=== PATIENT | female | born 1985 | race Caucasian/White ===

== ENCOUNTER → 2019-07-08 15:41 | Outpatient (CLI) | payer OTHER, SELFPAY ==
--- NOTE | 2019-07-08 | DI.US.S_ITS ---
PROCEDURE: US OB <= 14 WEEKS FETUS INDICATIONS: EVALUATE FOR ECTOPIC OUTSIDE/PRIOR DATING DATA: Last menstrual period (LMP): 05/27/19. LMP-based estimated date of delivery (SUREKHA): 03/02/20. First dating scan (date and location): 07/08/19. Estimated date of delivery (SUREKHA) from first dating scan: 02/27/20. TECHNIQUE: Real-time scanning was performed of the fetus and maternal pelvic organs, with image documentation. Endovaginal scanning was also performed to better visualize the fetus and maternal ovaries. COMPARISON: None. FINDINGS: Embryo: [place]-rump length measures 7 mm corresponding to 6 weeks 4 days. Heart rate measures 117 beats per minute. Measurement variability in dating: +/- 4 weeks by LMP, +/- 7 days by mean sac diameter (use before 6 weeks gestation if crown-rump length not able to be measured), +/- 5 days by crown-rump length (up to 8 weeks 6 days gestation), +/- 7 days by crown-rump length (up to 13 weeks 6 days gestation). Maternal organs: Ovaries within normal limits, with a right corpus luteal cyst. Limited images through the kidneys demonstrate no hydronephrosis. IMPRESSION: 6 week 4 [address] single living IUP. Dr. Flaherty given result by the zone manager at 1655 hrs. 07/08/19. Dictated by: Clifton LYONS Interpreted: Shivani Lyons MD on 07/08/2019 at 17:03 Approved by: Shivani Lyons MD, PhD on 07/08/2019 at 17:27
== END ==
PROVIDERS: Visit Provider Student in an Organized Health Care Education/Training Program
DX: O34.81 Maternal care for other abnormalities of pelvic organs, first trimester (principal); N83.11 Corpus luteum cyst of right ovary; Z3A.01 Less than 8 weeks gestation of pregnancy
CPT/HCPCS: 76801; 76817

== ENCOUNTER → 2019-07-15 10:06 | Outpatient (CLI) | payer OTHER, SELFPAY ==
--- NOTE | 2019-07-15 | DI.US.S_ITS ---
ULTRASOUND OF LEFT BREAST: 07/15/2019 CLINICAL: Palpable left breast lump. Patient reports painful left breast mass in the upper outer region extending towards the nipple without associated nipple discharge, fevers, or skin changes. Patient reports the palpable areas have been present for years and has not subjectively changed since becoming with the exception of the pain. On examination, there is dense fibroglandular tissue palpated at the patient directed area of pain with similar but less prominent dense fibroglandular tissue in the right breast as well. No skin or nipple abnormalities. No prior exams were available for comparison. Real-time ultrasound of the left breast was performed. [place] scale images of the real-time examination were reviewed. No significant abnormalities were seen sonographically in the left breast. Dense, heterogeneous fibroglandular breast tissue scattered throughout the left breast at areas of concern without focal mass, disturbed architecture, fluid collections or skin abnormalities. The contralateral breast was imaged real time with the radiologist demonstrating similar but less pronounced findings. IMPRESSION: NEGATIVE There is no sonographic evidence of malignancy. There is no abnormality seen in the left breast to correspond with the area of clinical concern, palpable abnormality, and pain which likely represent normal fibroglandular tissue, however, clinical followup is recommended for persistent or worsening symptoms. Findings, precautions, and recommendations were discussed with the patient during today's visit. This exam was interpreted at Station ID: [id number]. Electronically Signed By: Sheldon Brizuela M.D. aty/:07/15/2019 12:50:53 letter sent: Clinical Evaluation Ultrasound BI-RADS: 1 Negative
== END ==
PROVIDERS: Visit Provider Nurse Practitioner Family
DX: N63.21 Unspecified lump in the left breast, upper outer quadrant (principal); N64.4 Mastodynia
CPT/HCPCS: 76642

== ENCOUNTER → 2019-10-16 10:42 | Outpatient (CLI) | payer OTHER, SELFPAY ==
--- NOTE | 2019-10-16 | DI.US.S_ITS ---
PROCEDURE: US OB >= 14 WEEKS FETUS INDICATIONS: 20 WEEK ANATOMICAL SURVEY OUTSIDE/PRIOR DATING DATA: Last menstrual period (LMP): 05/27/19. LMP-based estimated date of delivery (SUREKHA): 03/02/20. First dating scan (date and location): 07/08/19. Estimated date of delivery (SUREKHA) from first dating scan: 02/27/20.. TECHNIQUE: Real-time scanning was performed of the fetus, with image documentation and biometric measurements. COMPARISON: None. FINDINGS: General: A single living intrauterine gestation is present. Presentation: Variable. Placenta: Placental position is anterior, without previa. Amniotic fluid index: 12.8 cm, normal range is 5-24 cm. heart rate: 144 beats per minute. Maternal cervical canal: 4.8 cm long. Normal lower limit is 2.5 cm. biometrics: Biparietal diameter: 20 weeks 1 day Head circumference: 20 weeks 1 day Abdominal circumference: 20 weeks 4 days Femur length: 20 weeks 2 days Estimated gestational age from initial scan: 20 weeks 6 days Composite gestational age from present scan: 20 weeks 2 days Estimated weight and percentile: 354 g; 24th percentile Measurement variability for biometric dating: +/- 7 days from 14 weeks to 15 weeks 6 days gestation, +/- 10 days from 16 weeks to 21 weeks 6 days gestation, +/- 2 weeks from 22 weeks to 27 weeks 6 days gestation, +/- 3 weeks for 28 weeks gestation or later. weight reference: 4500 g or EFW >90/95% is considered macrosomia or large for gestational age. EFW <10% is small for gestational age. EFW 5% or less is considered intra-uterine growth restriction. Anatomic survey: Neuro: Ventricles are non-dilated at less than 10 mm. Cisterna magna is normal at 3-11 mm. Cerebellum is normal in size and morphology. Nuchal skin fold: Normal at less than 6 mm between 14-21 weeks gestational age. Face: Nose and lips, facial profile are normal. Spine: No evidence for spina bifida. Heart: 4-chambered heart is present, and cardiac outflow tracts are not well seen. Solitary left ventricular intracardiac focus. Diaphragm: Diaphragm is intact. Stomach: Left-sided stomach is present. Kidneys: No hydronephrosis. Normal is less than 5 mm in 2nd trimester, less than 7 mm in 3rd trimester. Cord: 3-vessel cord has orthotopic insertion. Bladder: Normal in size. Extremities: All 4 extremities identified. IMPRESSION: 1. Normal interval growth. 2. Echogenic intracardiac focus: 1.4-1.8 fold likelihood of Down syndrome. If isolated finding, consider aneuploidy screening with cell-free DNA. If aneuploidy screen is negative, no further evaluation needed. 3. Cardiac outflow tracts are not well visualized; otherwise normal anatomy. 1. Dictated by: Clifton Coleman [facility] Interpreted: David Stevens MD on 10/16/2019 at 14:28 Approved by: David Stevens M.D. on 10/21/2019 at 10:59
== END ==
PROVIDERS: PCP Student in an Organized Health Care Education/Training Program; Visit Provider Student in an Organized Health Care Education/Training Program
DX: Z36.89 Encounter for other specified antenatal screening (principal); Z3A.20 20 weeks gestation of pregnancy
CPT/HCPCS: 76811

== ENCOUNTER → 2019-11-20 11:42 | Outpatient (CLI) | payer OTHER, SELFPAY ==
--- NOTE | 2019-11-20 | DI.US.S_ITS ---
PROCEDURE: US OB FOLLOW UP INDICATIONS: POOR CARDIAC OUTFLOW VISUALIZATION OUTSIDE/PRIOR DATING DATA: Last menstrual period (LMP): 05/27/19. LMP-based estimated date of delivery (SUREKHA): 03/02/20. First dating scan (date and location): 07/08/19. Estimated date of delivery (SUREKHA) from first dating scan: 02/27/20.. TECHNIQUE: Real-time scanning was performed of the fetus, with image documentation. Endovaginal scanning: No COMPARISON: None. FINDINGS: A single living intrauterine gestation is present. Presentation: Transverse head to maternal right cyst. Placenta: Placental position is anterior, without previa. Amniotic fluid index: 24.4 cm, normal range is 5-24 cm. heart rate: 144 beats per minute. Maternal cervical canal: 5.7 cm long. Estimated gestational age from initial scan: 25 weeks 6 days Normal appearance of the cardiac outflow tracts. IMPRESSION: Normal appearance of the cardiac outflow tracts. Dictated by: Clifton Coleman [facility] Interpreted: Chela Hadley MD on 11/20/2019 at 13:29 Approved by: Chela Hadley M.D. on 11/20/2019 at 14:02
== END ==
PROVIDERS: PCP Student in an Organized Health Care Education/Training Program; Visit Provider Student in an Organized Health Care Education/Training Program
DX: Z36.2 Encounter for other antenatal screening follow-up (principal)
CPT/HCPCS: 76816

== ENCOUNTER → 2019-11-27 08:03 | Outpatient (CLI) | payer OTHER, SELFPAY ==
[2019-11-27 10:06] LABS: GTT (PREG) 1 Hour PP 50gm Dose 112 mg/dL (76-139)
== END ==
PROVIDERS: PCP Student in an Organized Health Care Education/Training Program; Visit Provider Student in an Organized Health Care Education/Training Program
DX: Z34.80 Encounter for supervision of other normal pregnancy, unspecified trimester (principal)
CPT/HCPCS: 36415; 82950

== ENCOUNTER → 2020-02-05 12:52 | Outpatient (CLI) | payer OTHER, SELFPAY ==
--- NOTE | 2020-02-05 | DI.US.S_ITS ---
PROCEDURE: US OB BIOPHYSICAL PROFILE INDICATIONS: BPP OUTSIDE/PRIOR DATING DATA: Last menstrual period (LMP): 05/27/19. LMP-based estimated date of delivery (SUREKHA): 03/02/20. First dating scan (date and location): 07/23. Estimated date of delivery (SUREKHA) from first dating scan: 02/27/20. TECHNIQUE: Real-time scanning was performed of the fetus for biophysical profile, with image documentation. Color and pulse Doppler interrogation was also performed of the umbilical artery near its insertion into the placenta. Endovaginal scanning: Not performed COMPARISON: None. FINDINGS: General: A single living intrauterine gestation is present. Presentation: Vertex Placenta: Placental position is anterior, without previa. Amniotic fluid index: 15.3 cm, normal range is 5-24 cm. heart rate: 143 beats per minute. Maternal cervical canal: None measured . Biophysical profile: Tone: 2 points. Movement: 2 points. Respiration: 2 points. Largest pocket of fluid: 2 points. IMPRESSION: 1. Single live intrauterine with fetus in vertex presentation. heart rate is 143 beats per minute. Normal amount of amniotic fluid. 2. biophysical profile score is 8 out of 8. Dictated by: David Stevens M.D. on 02/05/2020 at 15:43 Approved by: David Stevens M.D. on 02/05/2020 at 15:46
[2020-02-05 13:15] LABS: Add Manual Diff / Slide Review NO; Basophils Absolute Auto 100 /uL (0-100); Basophils Percent Auto 0.6 % (0-2); Eosinophils Absolute Auto 100 /uL (0-450); Hematocrit 39.9 % (36-46); Hemoglobin 13.7 g/dL (12.0-16.0); Lymphocytes Absolute Auto 1600 /uL (1100-4500); Lymphocytes Percent Auto 13.9 % (25-40); Mean Corpuscular HGB Conc 34.4 % (30-36); Mean Corpuscular Hemoglobin 30.5 PG (26-34); Mean Corpuscular Volume 88.7 fL (80-100); Monocytes Absolute Auto 900 /uL (0-900); Neutrophils Absolute Auto 9000 /uL (1500-7000); Neutrophils Percent Auto 76.5 % (50-75); Platelet Count 206 X10^3/uL (150-400); Red Cell Distribution Width 13.5 % (11.6-14.8); White Blood Cell Count 11.8 X10^3/uL (4.5-11.0)
[2020-02-05 13:27] LABS: Alanine Aminotransferase 27 IU/L (<35); Aspartate Aminotransferase 25 IU/L (14-36); Blood Urea Nitrogen 6 mg/dL (7-17)
[2020-02-05 14:13] LABS: Creatinine Urine Random 17.7 mg/dL; Protein (Total) Urine Random 12 mg/dL (0-12); Protein Creatinine Ratio Urine 0.67 GRAM/24H
[2020-02-06 14:57] LABS: Strep Grp B PCR NEG for Grp B Strep
== END ==
PROVIDERS: PCP Student in an Organized Health Care Education/Training Program; Referring Provider Student in an Organized Health Care Education/Training Program; Visit Provider Student in an Organized Health Care Education/Training Program
DX: O14.93 Unspecified pre-eclampsia, third trimester (principal); Z36.85 Encounter for antenatal screening for Streptococcus B; Z3A.36 36 weeks gestation of pregnancy
CPT/HCPCS: 36415; 76819; 82570; 84156; 84450; 84460; 84520; 85025; 87653

== ENCOUNTER 2020-02-05 14:15 | Observation (INO) | payer OTHER, SELFPAY | END 2020-02-05 16:45 | disposition home or self-care (01) | PROVIDERS: Admitting Provider Student in an Organized Health Care Education/Training Program; PCP Student in an Organized Health Care Education/Training Program; Referring Provider Student in an Organized Health Care Education/Training Program; Visit Provider Student in an Organized Health Care Education/Training Program | DX: O14.93 Unspecified pre-eclampsia, third trimester (principal); Z3A.36 36 weeks gestation of pregnancy; Z36.85 Encounter for antenatal screening for Streptococcus B; M25.552 Pain in left hip | CPT/HCPCS: 36415; 59025; 59050; 76819; 82570; 84156; 84450; 84460; 84520; 85025; 87653; G0378; G0379 ==

== ENCOUNTER 2020-02-10 09:51 | Outpatient (CLI) | payer OTHER, SELFPAY ==
[2020-02-10 10:18] LABS: Creatinine Urine Random 138.6 mg/dL; Protein (Total) Urine Random 6 mg/dL (0-12); Protein Creatinine Ratio Urine 0.04 GRAM/24H
[2020-02-10 10:20] LABS: Add Manual Diff / Slide Review NO; Basophils Absolute Auto 0 /uL (0-100); Basophils Percent Auto 0.3 % (0-2); Eosinophils Absolute Auto 100 /uL (0-450); Eosinophils Percent Auto 0.9 % (2-4); Hematocrit 39.2 % (36-46); Hemoglobin 13.4 g/dL (12.0-16.0); Lymphocytes Absolute Auto 1400 /uL (1100-4500); Lymphocytes Percent Auto 13.6 % (25-40); Mean Corpuscular HGB Conc 34.1 % (30-36); Mean Corpuscular Hemoglobin 30.5 PG (26-34); Mean Corpuscular Volume 89.3 fL (80-100); Monocytes Absolute Auto 800 /uL (0-900); Monocytes Percent Auto 7.7 % (3-14); Neutrophils Absolute Auto 7900 /uL (1500-7000); Neutrophils Percent Auto 77.5 % (50-75); Platelet Count 181 X10^3/uL (150-400); Red Blood Cell Count 4.39 X10^6/uL (4.0-5.2); Red Cell Distribution Width 13.3 % (11.6-14.8); White Blood Cell Count 10.2 X10^3/uL (4.5-11.0)
[2020-02-10 10:31] LABS: Alanine Aminotransferase 26 IU/L (<35); Albumin 3.7 g/dL (3.5-5.0); Albumin Globulin Ratio 1.1 (1.0-2.8); Alkaline Phosphatase 101 U/L (38-126); Aspartate Aminotransferase 23 IU/L (14-36); BUN Creatinine Ratio 10.9 (6-22); Bilirubin Total 0.2 mg/dL (0.2-1.3); Blood Urea Nitrogen 5 mg/dL (7-17); Calcium 9.5 mg/dL (8.4-10.2); Carbon Dioxide 23 mmol/L (22-32); Chloride 106 mmol/L (98-107); Estimated Glomerular Filt Rate > 60.0 mL/min (>60); Globulin 3.3 g/dL (1.7-4.1); Glucose 78 mg/dL (70-100); HEMOLYSIS < 15 (0-50); Potassium 4.6 mmol/L (3.4-5.1); Sodium 136 mmol/L (137-145)
[2020-02-11 07:17] LABS: 24 Hour Ur Protein Calculated 136 mg/24 hr (30-150)
== END 2020-02-10 11:06 | disposition home or self-care (01) ==
LOC: OB 02-11 10:57
PROVIDERS: PCP Student in an Organized Health Care Education/Training Program; Referring Provider Student in an Organized Health Care Education/Training Program; Visit Provider Student in an Organized Health Care Education/Training Program
DX: O36.8130 Decreased fetal movements, third trimester, not applicable or unspecified (principal); Z3A.37 37 weeks gestation of pregnancy
CPT/HCPCS: 36415; 59025; 80053; 82570; 84156; 84550; 85025; G0378; G0379

== ENCOUNTER → 2020-02-19 12:57 | Outpatient (CLI) | payer OTHER, SELFPAY ==
--- NOTE | 2020-02-19 | DI.US.S_ITS ---
PROCEDURE: US OB BIOPHYSICAL PROFILE INDICATIONS: HTN; HISTORY PRE-ECLAMPSIA OUTSIDE/PRIOR DATING DATA: Last menstrual period (LMP): 05/27/19. LMP-based estimated date of delivery (SUREKHA): 03/02/20. First dating scan (date and location): 07/08/19. Estimated date of delivery (SUREKHA) from first dating scan: 02/27/20. TECHNIQUE: Real-time scanning was performed of the fetus for biophysical profile, with image documentation. Color and pulse Doppler interrogation was also performed of the umbilical artery near its insertion into the placenta. Endovaginal scanning: Not needed. COMPARISON: [facility], OB BIOPHYSICAL PROFILE, 02/05/2020, 13:02. FINDINGS: General: A single living intrauterine gestation is present. Presentation: Vertex. Placenta: Placental position is anterior, without previa. Amniotic fluid index: 7.8 cm, normal range is 5-24 cm. heart rate: 135 beats per minute. Estimated gestational age from initial scan: 38 weeks 6 days. Biophysical profile: 88 possible points Tone: 2 points. Movement: 2 points. Respiration: 2 points. Largest pocket of fluid: 2 points. IMPRESSION: Biophysical profile is 8 of 8 possible points. The delivery date is projected be centered on 02/27/20. Normal amniotic fluid volume. Dictated by: Júnior Dean M.D. on 02/19/2020 at 14:00 Approved by: Júnior Dean M.D. on 02/19/2020 at 14:03
[2020-02-19 13:11] LABS: Add Manual Diff / Slide Review NO; Basophils Absolute Auto 0 /uL (0-100); Basophils Percent Auto 0.3 % (0-2); Eosinophils Absolute Auto 100 /uL (0-450); Hematocrit 39.7 % (36-46); Hemoglobin 13.3 g/dL (12.0-16.0); Lymphocytes Absolute Auto 1600 /uL (1100-4500); Lymphocytes Percent Auto 14.7 % (25-40); Mean Corpuscular HGB Conc 33.4 % (30-36); Mean Corpuscular Hemoglobin 30.3 PG (26-34); Mean Corpuscular Volume 90.5 fL (80-100); Monocytes Absolute Auto 800 /uL (0-900); Monocytes Percent Auto 6.9 % (3-14); Neutrophils Absolute Auto 8600 /uL (1500-7000); Neutrophils Percent Auto 77.1 % (50-75); Platelet Count 223 X10^3/uL (150-400); Red Blood Cell Count 4.39 X10^6/uL (4.0-5.2); Red Cell Distribution Width 13.5 % (11.6-14.8); White Blood Cell Count 11.2 X10^3/uL (4.5-11.0)
[2020-02-19 13:23] LABS: Alanine Aminotransferase 49 IU/L (<35); Albumin 3.7 g/dL (3.5-5.0); Albumin Globulin Ratio 1.2 (1.0-2.8); Alkaline Phosphatase 108 U/L (38-126); Aspartate Aminotransferase 36 IU/L (14-36); BUN Creatinine Ratio 12.8 (6-22); Bilirubin Total 0.3 mg/dL (0.2-1.3); Blood Urea Nitrogen 6 mg/dL (7-17); Calcium 9.5 mg/dL (8.4-10.2); Carbon Dioxide 23 mmol/L (22-32); Chloride 104 mmol/L (98-107); Estimated Glomerular Filt Rate > 60.0 mL/min (>60); Glucose 83 mg/dL (70-100); HEMOLYSIS < 15 (0-50); Potassium 4.7 mmol/L (3.4-5.1); Sodium 136 mmol/L (137-145); Total Protein 6.7 g/dL (6.3-8.2)
[2020-02-19 14:11] LABS: Creatinine Urine Random 24.9 mg/dL; Protein (Total) Urine Random 10 mg/dL (0-12)
== END ==
PROVIDERS: PCP Student in an Organized Health Care Education/Training Program; Referring Provider Student in an Organized Health Care Education/Training Program; Visit Provider Student in an Organized Health Care Education/Training Program
DX: Z87.59 Personal history of other complications of pregnancy, childbirth and the puerperium (principal); O16.3 Unspecified maternal hypertension, third trimester; Z3A.38 38 weeks gestation of pregnancy
CPT/HCPCS: 76819; 80053; 82570; 84156; 85025

== ENCOUNTER 2020-02-19 14:01 | Observation (INO) | payer OTHER, SELFPAY | END 2020-02-19 16:13 | disposition home or self-care (01) | PROVIDERS: Admitting Provider Student in an Organized Health Care Education/Training Program; PCP Student in an Organized Health Care Education/Training Program; Referring Provider Student in an Organized Health Care Education/Training Program; Visit Provider Student in an Organized Health Care Education/Training Program | DX: O26.893 Other specified pregnancy related conditions, third trimester (principal); R03.0 Elevated blood-pressure reading, without diagnosis of hypertension; Z3A.38 38 weeks gestation of pregnancy | CPT/HCPCS: 59025; 59050; 76819; 80053; 82570; 84156; 85025; G0378; G0379 ==

== ENCOUNTER → 2020-02-22 13:32 | Outpatient (ROUT) | payer OTHER, SELFPAY ==
[2020-02-22 16:33] LABS: Creatinine Urine Random 59.4 mg/dL; Protein (Total) Urine Random 9 mg/dL (0-12); Protein Creatinine Ratio Urine 0.15 GRAM/24H
[2020-02-23 00:36] LABS: 24 Hour Ur Protein Calculated 130 mg/24 hr (30-150)
== END ==
PROVIDERS: PCP Student in an Organized Health Care Education/Training Program; Visit Provider Student in an Organized Health Care Education/Training Program
DX: Z34.80 Encounter for supervision of other normal pregnancy, unspecified trimester (principal); Z87.59 Personal history of other complications of pregnancy, childbirth and the puerperium
CPT/HCPCS: 82570; 84156

== ENCOUNTER 2020-02-24 05:46 | Inpatient (IN) | payer OTHER, SELFPAY ==
--- NOTE | 2020-02-22 12:12 | P.HPOB_ITS ---
OB HPI Date/Time Date of admission: 02/24/20 Date Patient Seen: 02/24/20 History of Present Condition Chief complaint: [id number] : 3 Para: 1 Estimated Date of Delivery: 02/27/20 Estimated Gestational Age (weeks): 39w4d Narrative: Breanna Cramer is a 35 year old at 39w4d with SUREKHA of 02/27/2020 per first trimester ultrasound. She presents for repeat . She has a history of preeclampsia. In the last 3 weeks, her blood pressures have been labile, at times 140/100, and at times, normal. Serial blood pressure monitoring in OB triage for 2 hours at each episode of ambulatory hypertension at 36w6d and 38w6d have all been normal. She has been on modified bedrest. Serial PIH labs, BPP, and 24 urine proteins x 2 have been significant for an elevated ALT of 49, 5 days prior to presentation. 24 hour urine protein 2 days prior to presentation was 130. BPPs have both been 8/8. She has had some low- grade headaches, mild nausea in the middle the night if she does not eat something, and mild hand and facial edema but she is still able to wear her ring. If she takes a hot shower, she sometimes has spotty vision. Denies right upper quadrant pain; no vomiting. course also significant for left breast pain with normal ultrasound on 07/15/19. Smokes 1/4 pack per day. LABS/IMAGING: ABO O positive, antibody negative on 07/31/19. Rubella non-immune, 0.91 on 07/31/19. Hepatitis-B surface antigen negative. HIV, HSV 1 and 2 negative. GC/chlamydia negative. Treponemal antibody negative. Varicella titer positive. Pap smear plus HPV DNA negative on 07/29/19. Urine culture negative on 07/29/19. Hemoglobin/hematocrit 12.5/36.4 on 07/29/19. Repeat hemoglobin/hematocrit 13.3/39.7 on 02/19/20. TSH within normal limits. 1 hour Glucola negative on 11/27/18. GBS negative on 02/05/20. NIPT negative, 07/31/19, female. SARS-CoV2 negative on 02/22/20. Dating US: 07/08/19, 6w4d, SUREKHA 02/27/20 Anatomy Scan: 10/16/20, 20w2d, cardiac outflow tract not well visualized, repeat scan on 11/20/2019 normal. BPP: 02/05/2020: 36w6d, 06/11 BPP: 02/19/2020: 38w6d, 06/11 OBSTETRIC HISTORY: 1. 03/26/2007, primary LTCS after 64 hours of labor, induced at 36 WGA for preeclampsia. Viable female, 5 lb 5oz. [employer] [place]. 2. 02/05/2019, SAB at 5 weeks GYNECOLOGICAL HISTORY: None PAST MEDICAL HISTORY: ADHD/anxiety, managed by Aide Ty PAST SURGICAL HISTORY: 1. Laparoscopic cholecystectomy, 2009 2. Primary low-transverse section, 2006 FAMILY HISTORY: Father: Alcohol abuse Mother: Hypertension Siblings: Asthma Maternal aunt: Breast cancer, age 41 SOCIAL HISTORY: and now remarried. 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 /father of baby, Bakari. Lives at home with him and her daughter, Fadia. Smokes 1/4 pack per day. No alcohol use. No illicit drug use. [facility] Social History Smoking Status: Former smoker Meds Home Medications and Allergies Home Medications Medication Instructions Recorded Confirmed Type No Known Home Medications 02/24/20 02/24/20 History Allergies Allergy/AdvReac Type Severity Reaction Status Date / Time acetaminophen [From Percocet] AdvReac Verified 02/24/20 07:43 ciprofloxacin [From Cipro] AdvReac Verified 02/24/20 07:44 oxycodone [From Percocet] AdvReac Verified 02/24/20 07:42 Review of Systems Review of Systems ROS: Yes All systems reviewed with the patient and are negative except as otherwise documented Exam Narrative Exam Narrative: General: NAD Skin: Color unremarkable, no rash nor lesions HEENT: Neck supple with midline trachea Lungs: CTAB Heart: Normal rate, and regular rhythm, S1, S2 normal, no murmur, click, rub or gallop Abdomen: Gravid, soft, non-tender Extremities: No cord, no edema, no cyanosis Pelvis: Normal female external genitalia Presentation: vertex Cervix: deferred Monitoring: Variability: Moderate Baseline: 135 Accelerations: Present Decelerations: Absent Contractions: Every 3-7 minutes Strength: Moderate Objective Labs Result Diagrams: 02/24/20 07:25 Assessment and Plan Assessment and Plan Assessment and Plan narrative: 1. IUP at 39w4d 2. 3. Repeat 4. Preeclampsia without severe features 5. Tobacco dependence, 1/4 pack per day 6. Rubella nonimmune Plan for repeat under spinal anesthesia with routine preop orders. Informed consent obtained and signed.
--- NOTE | 2020-02-22 13:05 | P.OP_ITS ---
Operative Date/Time/Diagnoses Date of procedure: 02/24/20 Time of procedure: 07:45 Pre-op diagnosis: 1. IUP at 39w4d 2. 3. Repeat 4. Preeclampsia without severe features 5. Tobacco dependence, 1/4 pack per day 6. Rubella nonimmune Post-op diagnosis: other (Same plus status post repeat low-transverse at 39w4d) Procedure & Clinicians Procedure: 1. Repeat low transverse section Same procedure as scheduled: Yes Indications: 1. IUP at 39w4d 2. 3. Repeat 4. Preeclampsia without severe features 5. Tobacco dependence, 1/4 pack per day 6. Rubella nonimmune Surgeon: Kamryn Flaherty [employer] Software Development Engineer: Jd Daigle Anesthesia Type: Spinal Operative Notes Findings: Viable female in vertex presentation. Clear fluid with no cords. Apgars 9 and 9. Weight 6 lb 13.3 oz/3101 g. Normal uterus tubes and ovaries. Closure Type: primary Specimen(s): none sent Estimated Blood Loss (mL): 350 Blood products transfused: none Procedure in detail: Anesthesia: Spinal Complications: None Estimated blood loss: 350 cc Fluids: 1900 cc crystalloid Urine output: 500 cc clear urine at end of procedure. The patient was taken to the operating room where spinal anesthesia was found to be adequate. She was then prepared and draped in the normal sterile fashion in the dorsal supine position with a leftward tilt. A Pfannenstiel skin incision was then made with a scalpel and carried through to the underlying layer of fascia. The fascia was incised in the midline and the incision extended laterally with Lopez scissors. The superior aspect of the fascial incision was then grasped with the Sulma clamps elevated, and the underlying rectus muscles dissected off bluntly. Attention was then turned to the inferior aspect of this incision, which in a similar fashion, was grasped, tented up with the Sulma clamps, and the rectus muscle dissected off bluntly. The rectus muscles were then in the midline, and the peritoneum identified, tented up, and entered sharply with Metzenbaum scissors. The peritoneal incision was then extended superiorly and inferiorly with good visualization of the bladder. The bladder blade was then inserted and the vesicouterine peritoneum identified, grasped with pickups, and entered sharply with Metzenbaum scissors. This incision was then extended laterally and the bladder flap created digitally. The bladder blade was then reinserted and the lower uterine uterine segment incised in a transverse fashion with the scalpel. The uterine incision was then extended laterally digitally. The bladder blade was removed and the 's head delivered atraumatically. The nose and mouth were suctioned with DeLee suction trap and the cord clamped and cut. They was handed off to the nurses in attendance. The placenta was then removed manually; the uterus exteriorized, and cleared of all clots and debris. The uterine incision was repaired with 0 chromic in a running locking fashion. A second layer of the same suture was used to obtain excellent hemostasis. The bladder flap was repaired with 3-0 Vicryl in a running stitch and the uterus returned to the abdomen. The gutters were cleared of all clots and the peritoneum closed with 3-0 Vicryl. The rectus was loosely approximated using 0 chromic. The fascia was reapproximated with 0 Vicryl in a running fashion. The subcutaneous layer was closed with 2-0 chromic. The skin was closed with a Wyatt needle. The patient tolerated the procedure well. Sponge lap and needle counts were correct x2. 2 g of Ancef was given at beginning a procedure. The patient was taken to the recovery room in stable condition. Complications: none Post-operative Condition: stable Disposition: PACU Plan for aftercare: Routine care
[2020-02-24 07:37] LABS: Add Manual Diff / Slide Review NO; Basophils Absolute Auto 0 /uL (0-100); Basophils Percent Auto 0.4 % (0-2); Eosinophils Absolute Auto 200 /uL (0-450); Eosinophils Percent Auto 1.4 % (2-4); Hematocrit 39.4 % (36-46); Hemoglobin 13.3 g/dL (12.0-16.0); Lymphocytes Absolute Auto 1800 /uL (1100-4500); Lymphocytes Percent Auto 15.7 % (25-40); Mean Corpuscular HGB Conc 33.9 % (30-36); Mean Corpuscular Hemoglobin 31.7 PG (26-34); Mean Corpuscular Volume 93.6 fL (80-100); Monocytes Absolute Auto 800 /uL (0-900); Monocytes Percent Auto 7.4 % (3-14); Neutrophils Absolute Auto 8500 /uL (1500-7000); Neutrophils Percent Auto 75.1 % (50-75); Platelet Count 195 X10^3/uL (150-400); Red Cell Distribution Width 13.5 % (11.6-14.8); White Blood Cell Count 11.3 X10^3/uL (4.5-11.0)
[2020-02-24] MEDS: LACTATED RINGERS 1,000 ML 100 ML IV ×4 (07:39→20:58)
[2020-02-24] MEDS: CEFAZOLIN 2 GM/100 ML FROZ.PIGGY IV (08:00)
[2020-02-24] MEDS: ACETAMINOPHEN IV 1,000 MG/100 ML VIAL 400 MG IV (08:25)
--- NOTE | 2020-02-24 08:26 | SUR.OPER ---
Supine on Padded OR bed, head on pillow, safety belt at thigh, arms secured on padded arm boards at <90 degrees abduction. Bump under right buttock. Legs uncrossed with pillow under knees, gel pad to heels, tape over blanket to lower legs.
--- NOTE | 2020-02-24 08:43 | SUR.OPER ---
VIABLE FEMALE INFANT DELIVERED AT 0836. PLACENTA AND CORD BLOOD TO OB WITH VITALY MOHAN.
[2020-02-24 09:45] VITALS: BP 121/69; PULSE 78; RESP 15; TEMP 36.1; O2SAT 100
[2020-02-24 09:50] VITALS: BP 121/72; PULSE 68; O2SAT 99
[2020-02-24 09:55] VITALS: BP 119/75; PULSE 77; RESP 14; O2SAT 97
[2020-02-24 10:00] VITALS: BP 115/72; PULSE 76; RESP 14; O2SAT 100
--- NOTE | 2020-02-24 10:03 | SUR.PHASEI ---
Report called to Moira
[2020-02-24 10:05] VITALS: BP 120/69; PULSE 84; RESP 15; TEMP 35.7; O2SAT 99
--- NOTE | 2020-02-24 10:07 | SUR.PHASEI ---
Patient c/o feeling light headed. HOB lowered, relaxation encouraged. VS stable, vaginal bleeding checked, small amount of bloody fluid to juliette-pad.
[2020-02-24 10:09] VITALS: BP 116/76; PULSE 72; RESP 16; O2SAT 99
--- NOTE | 2020-02-24 10:22 | SUR.PHASEI ---
Patient reported lightheaded feeling improved. VS Stable. Transferred to the center. Report given to MARQUES Pizarro. Fundus, juliette-pad and surgical site checked with Moira. Gonzalez patent. Patient able to move legs and assist with reposition. IV saline locked.
[2020-02-24] MEDS: HYDROCODONE/ACET 5/325 TABLET 1 TAB PO ×3 (11:15→21:23)
[2020-02-24] MEDS: ONDANSETRON 4 MG/2 ML INJ IV (13:01)
[2020-02-24] MEDS: KETOROLAC 30 MG/ML VIAL IV ×2 (15:20→21:12)
[2020-02-25] MEDS: KETOROLAC 30 MG/ML VIAL IV (03:13)
[2020-02-25] MEDS: SODIUM CHLORIDE 0.9% FLUSH 10 ML IV (03:13)
[2020-02-25] MEDS: HYDROCODONE/ACET 5/325 TABLET 1 TAB PO ×4 (03:52→16:29)
[2020-02-25 06:43] LABS: Add Manual Diff / Slide Review NO; Basophils Absolute Auto 0 /uL (0-100); Basophils Percent Auto 0.2 % (0-2); Eosinophils Absolute Auto 100 /uL (0-450); Eosinophils Percent Auto 0.6 % (2-4); Hematocrit 32.4 % (36-46); Hemoglobin 11.1 g/dL (12.0-16.0); Lymphocytes Absolute Auto 1400 /uL (1100-4500); Mean Corpuscular HGB Conc 34.2 % (30-36); Mean Corpuscular Hemoglobin 31.1 PG (26-34); Monocytes Absolute Auto 800 /uL (0-900); Monocytes Percent Auto 6.4 % (3-14); Neutrophils Absolute Auto 10600 /uL (1500-7000); Neutrophils Percent Auto 81.8 % (50-75); Platelet Count 162 X10^3/uL (150-400); Red Blood Cell Count 3.56 X10^6/uL (4.0-5.2); Red Cell Distribution Width 13.7 % (11.6-14.8); White Blood Cell Count 12.9 X10^3/uL (4.5-11.0)
[2020-02-25] MEDS: DOCUSATE 250 MG CAPSULE PO (08:25)
[2020-02-25 09:56] VITALS: TEMP 36.9
[2020-02-25] MEDS: IBUPROFEN 600 MG TABLET PO ×3 (09:56→21:08)
--- NOTE | 2020-02-25 12:42 | PM.OBPN.1 ---
Subjective - OB Subjective Patient comments: no complaints, pain well controlled, tolerating diet and flatus present baby status: doing well and nursing well [place] feeding status: exclusively breast feeding Narrative: Patient is doing well. Tolerating full diet, no nausea or vomiting. Breast feeding well. Has been up to ambulate, no dizziness. Pain controlled with medications. Positive flatus, no bowel movements. Gonzalez removed, voiding well. Denies headache, worsening swelling, visual changes, right upper quadrant pain, or worsening edema. Blood pressures have been within normal limits. Date Patient Seen: 02/25/20 Time Patient Seen: 12:43 Exam Vital Signs (past 8 hours): - 02/25/20 09:56 Temperature 98.5 F Oxygen Delivery Method Room Air Narrative Exam Narrative: General: NAD HEENT: Neck supple with midline trachea Lungs: CTAB Heart: Normal rate, and regular rhythm, S1, S2 normal, no murmur, click, rub or gallop Abdomen: FF at U-3, tenderness appropriate. Incision, clean, dry, intact. Extremities: No clubbing, no edema, no cyanosis Objective Labs Result Diagrams: 02/25/20 06:30 Labs: Laboratory Results - last 24 hr 02/25/20 06:30 WBC 12.9 H RBC 3.56 L Hgb 11.1 L Hct 32.4 L MCV 91.0 MCH 31.1 MCHC 34.2 RDW 13.7 Plt Count 162 Neut % (Auto) 81.8 H Lymph % (Auto) 11.0 L [place] % (Auto) 6.4 Eos % (Auto) 0.6 L Baso % (Auto) 0.2 Neut # (Auto) 18399 H Lymph # (Auto) 1400 [place] # (Auto) 800 Eos # (Auto) 100 Baso # (Auto) 0 Assessment & Plan Plan day: 1 plan OB: routine care and routine postop care Comments: 1. Status post R/LTCS at 39w4d, POD #1 2. 3. Preeclampsia without severe features 4. Tobacco dependence, 1/4 pack per day 5. Rubella nonimmune Plan for discharge to home tomorrow. MMR prior to discharge. Time Spent With Patient Time: Total time spent is greater than 50% in coordination of care (as documented) at patient's floor/unit and/or counseling patient: Time with patient: Greater than 35 minutes
[2020-02-25 18:14] VITALS: TEMP 36.9
[2020-02-25] MEDS: HYDROMORPHONE 2 MG TABLET PO (18:14)
[2020-02-25] MEDS: HYDROCODONE/ACET 10/325 TABLET 1 TAB PO (21:08)
[2020-02-26] MEDS: HYDROCODONE/ACET 10/325 TABLET 1 TAB PO ×2 (00:54→05:02)
[2020-02-26] MEDS: IBUPROFEN 600 MG TABLET PO ×2 (02:51→08:53)
--- NOTE | 2020-02-26 08:16 | PM.OBDS.1 ---
Discharge Providers Provider Date of admission: 02/24/20 05:46 Discharge Date: 02/26/20 Primary care physician: Kamryn Flaherty MD Consults: 02/24/20 11:10 Consult to Federal Mediation Commissioner Routine Comment: Discharge provider: Kamryn Flaherty MD Summary Hospital Course Date Patient Seen: 02/26/20 Time Patient Seen: 08:15 Procedures: 1. Repeat low-transverse section, 02/24/20, Dr. Flaherty, no complications. 2. Spinal, 02/24/20, Dr. Finch, no complications. Hospital Course: Unremarkable. Mother is well. Tolerating full diet with no nausea vomiting. Ambulating well. Lochia less than menses. On day of discharge, she is afebrile with stable vital signs throughout. Discharge diagnoses: 1. Status post R/LTCS at 39w4d, POD #2 2. 3. Preeclampsia without severe features 4. Tobacco dependence, 1/4 pack per day 5. Rubella nonimmune Time spent on Discharge and Coordination of post-hospital care: 35 minutes Time Spent with Patient Time attestation: Total time spent providing and/or coordinating discharge services: Objective Labs Result Diagrams: 02/25/20 06:30 Exam Vital Signs (past 8 hours): Oxygen Delivery Method Room Air Narrative Exam Narrative: General: NAD HEENT: Neck supple with midline trachea Lungs: CTAB Heart: Normal rate, and regular rhythm, S1, S2 normal, no murmur, click, rub or gallop Abdomen: FF at U-3, tenderness appropriate. Incision, clean, dry, intact. Extremities: No clubbing, no edema, no cyanosis Discharge Plan Discharge Plan Patient Disposition: Home Discharge orders & Medications Prescriptions: New hydrocodone-acetaminophen 5-325 mg Tablet 1 tab PO Q4HR PRN (Reason: Pain, Mild (1-3)) Qty: 45 RF: 0 ibuprofen 600 mg Tablet 600 mg PO Q6HR PRN (Reason: Fever/Mild Pain (1-3)) Qty: 90 RF: 2 docusate sodium 250 mg Capsule 250 mg PO BID Qty: 45 RF: 1 Follow up/Referrals: Kamryn Flaherty MD [Primary Care Provider] - (please f/u w/ Dr. Flaherty on March 09 @ 8:30am) Discharge Health Status Multidrug resistant organism: No MDRO Diet/Activity/Treatments Diet: Diet as Tolerated Activity: 1. Pelvic rest x6 weeks 2. No driving for 2 weeks. 3. Call or return for uncontrolled pain, fever, intractable nausea or vomiting, trouble with urination, heavy vaginal bleeding greater than 1 pad per hour, suicidal/homicidal thoughts, signs or symptoms of infection, or any other concerns. Skin/Wound/Dressing Care Report to your healthcare provider any signs of infection, such as:: chills, fever, increased pain, unusual drainage and unusual redness Dressing: Soap/water cleanse daily Visit Report/Discharge Packet Instructions: DI for Stand Alone Forms: Discharge: Care Discharge Data Primary Care Provider: Kamryn Flaherty Discharges patient from system. Discharge Date/Time: 02/26/20 11:30
[2020-02-26] MEDS: DOCUSATE 250 MG CAPSULE PO (08:53)
== END 2020-02-26 11:30 | disposition home or self-care (01) | DRG 788 ==
PROVIDERS: Admitting Provider Student in an Organized Health Care Education/Training Program; PCP Student in an Organized Health Care Education/Training Program; Referring Provider Student in an Organized Health Care Education/Training Program; Visit Provider Student in an Organized Health Care Education/Training Program
PROC: 10D00Z1 Extraction of Products of Conception, Low, Open Approach (ICD-10-PCS; CPT 59514; principal; 2020-02-24 07:45)
DX: O14.04 Mild to moderate pre-eclampsia, complicating childbirth (principal); Z3A.39 39 weeks gestation of pregnancy; Z37.0 Single live birth; O34.219 Maternal care for unspecified type scar from previous cesarean delivery; O99.334 Smoking (tobacco) complicating childbirth; F17.200 Nicotine dependence, unspecified, uncomplicated
CPT/HCPCS: 36415; 59050; 82570; 84156; 85025; 86850; 86900; 86901; J0131; J0690; J1885; J2274; J2405; J2590; J3010